=== PATIENT | male | born 1965 | race Caucasian/White ===

== ENCOUNTER 2023-05-02 22:27 | Emergency (ER) | payer SELFPAY ==
[~2023-05-02] VITALS: Ht 185.4 cm; Wt 83.9 kg
[2023-05-02 22:29] VITALS: BP 117/68; PULSE 82; RESP 16; TEMP 98; O2SAT 97
[2023-05-02 23:06] LABS: FLU A ANTIGEN negative (NEGATIVE); FLU B ANTIGEN NEGATIVE (NEGATIVE)
[2023-05-02] MEDS ORDERED: AZIT250T11 PO (23:46)
[2023-05-02] MEDS ORDERED: ALBU0.0912 INH (23:47)
[2023-05-02] MEDS ORDERED: PRED20TA5 PO (23:47)
== END 2023-05-03 00:05 | disposition home or self-care (01) ==
LOC: MED 22:27
DX: R05.9 Cough, unspecified (principal); F10.90 Alcohol use, unspecified, uncomplicated; Z20.822 Contact with and (suspected) exposure to COVID-19; J44.9 Chronic obstructive pulmonary disease, unspecified; F17.200 Nicotine dependence, unspecified, uncomplicated; Z71.6 Tobacco abuse counseling; Z79.899 Other long term (current) drug therapy; Z79.2 Long term (current) use of antibiotics; Y90.9 Presence of alcohol in blood, level not specified
CPT/HCPCS: 71045; 99284